=== PATIENT | female | born 1955 | race Caucasian/White ===

== ENCOUNTER → 2016-12-28 | Outpatient (CLI) | payer OTHER ==
[~2016-12-28] MED LIST: CITA10SO PO; LEVO100T4 PO; MEDR4PAK3 PO; ZITH250T PO
--- NOTE | 2016-12-28 10:19 | RADRPT ---
EXAM DATE/TIME: 12/28/2016 10:12 [facility] COMPARISON: CHEST PA & LAT, February 13, 2015, 12:00. INDICATIONS : Short of breath. MEDICAL HISTORY : Smoking. SURGICAL HISTORY : None. ENCOUNTER: Initial ACUITY: 2 weeks PAIN SCORE: 0/10 LOCATION: Bilateral chest FINDINGS: PA and lateral views of the chest demonstrate the lungs to be symmetrically aerated without evidence of mass, infiltrate or effusion. The cardiomediastinal contours are unremarkable. Osseous structure s are intact. CONCLUSION: No acute disease. Abhijit Whyte MD on December 28, 2016 at 10:16 Board Certified Radiologist. This report was verified electronically.
== END ==
LOC: HRAD 09:48
DX: R06.02 Shortness of breath (principal)
CPT/HCPCS: 71020

== ENCOUNTER 2017-03-17 08:59 | Day surgery (SDC) | payer OTHER ==
--- NOTE | 2017-03-17 14:44 | RADRPT ---
EXAM DATE/TIME: 03/17/2017 09:19 [facility] COMPARISON: No previous studies available for comparison. INDICATIONS : Thyroid paplable lump. MEDICAL HISTORY : Thyroid disease. Ectopic x2. Tobacco use. SURGICAL HISTORY : Bilateral salpingectomy. One ovary and half of the other removed. ENCOUNTER: Initial ACUITY: 4 - 6 months PAIN SCORE: 0/10 LOCATION: Bilateral neck MEASUREMENTS: RIGHT LOBE: 3.3 x 1.4 x 1.2 cm LEFT LOBE: 3.2 x 1.3 x 1.2 cm FINDINGS: RIGHT LOBE: Diffusely heterogeneous echotexture with normal vascularity. Predominantly hypoechoic solid nodu le in the lower thyroid lobe measuring 7 x 5 x 4 mm. Predominantly hypoechoic solid nodule in th e mid thyroid lobe measuring 8 x 9 x 4 mm. LEFT LOBE: Diffusely heterogeneous echotexture with normal vascularity. Heterogeneous solid nodule measurin g 12 x 5 x 4 mm. ISTHMUS: Normal in size without focal abnormality. CONCLUSION: Diffusely heterogeneous thyroid echotexture with bilateral noncalcified solid thyroid nodules, as abo ve. These nodules do not meet Society of [employer] in Ultrasound criteria for sampling. Abebe Green MD on March 17, 2017 at 14:33 Board Certified Radiologist. This report was verified electronically.
--- NOTE | 2017-03-17 14:45 | RADRPT ---
EXAM DATE/TIME: 03/17/2017 09:19 [facility] COMPARISON: No previous studies available for comparison. INDICATIONS : Patient feels inner lump when swallowing. MEDICAL HISTORY : Thyroid disease. Ectopic x2. Tobacco use. SURGICAL HISTORY : Bilateral salpingectomy. One ovary and half of the other removed. ENCOUNTER: Initial ACUITY: 4-6 months PAIN SCORE: 0/10 LOCATION: Bilateral neck AREA EVALUATED: Neck FINDINGS: MASSES: None. FLUID COLLECTIONS: None. OTHER: Negative. CONCLUSION: 1. Ultrasound examination of the soft tissues in the patient's region of palpable mass does not demon strate any focal abnormality. Abebe Green MD on March 17, 2017 at 14:42 Board Certified Radiologist. This report was verified electronically.
== END 2017-03-17 10:00 | disposition home or self-care (01) ==
LOC: HRAD 08:59 → HRIP 09:03 → EDSTATUS 09:30 → HRAD 10:00
DX: E04.2 Nontoxic multinodular goiter (principal)
CPT/HCPCS: 76536

== ENCOUNTER → 2017-06-10 | Outpatient (CLI) | payer OTHER ==
[~2017-06-10] VITALS: Ht 160 cm; Wt 79.4 kg
[~2017-06-10] MED LIST changes: +CELE20TA PO; +CHLORHEXIDINE GLUCONATE 2 % 1 PACK (2 CLOTHS) TOPICAL PRN; +INSULIN HUMAN REGULAR 1,000 UNITS/10 ML VIAL SQ PRN; +LACTATED RINGER'S 1000 ML INJ 1,000 ML IV ONE; +LACTATED RINGER'S 1000 ML IV PRN; +LEVO100T5 PO; +LIDOCAINE HCL 1% PF 5 ML AMPULE OTHER ONE; +METOPROLOL TARTRATE 25 MG TAB PO PRN; +POVIDONE IODINE 5% (ANTISEPSIS KIT) 4 APPLICATIONS EACH NARE PRN; +PROPOFOL 200 MG/20 ML AMP IV ONE; +SODIUM CHLORID 0.9% 500 ML IV PRN
--- NOTE | 2017-06-10 14:55 | GIPROC ---
[facility] [address] [facility] [facility] [address] [facility]. [facility], [address] EGD PROCEDURE REPORT EXAM DATE: 06/10/2017 PATIENT NAME: Virgie Cuevas MR #: [id number] BIRTHDATE: 1955 ATTENDING: Seth Cowan MD ORDER #: [id number] TILE LAYER: Staci Zhnag and Carin Dominguez STATUS: outpatient INDICATIONS: The patient is a 62 yr old female here for an EGD due to dysphagia PROCEDURE PERFORMED: EGD w/ biopsy EGD w/ dilation of esophagus via guidewire MEDICATIONS: None and Per Anesthesia. TOPICAL ANESTHETIC: none CONSENT: The patient understands the risks and benefits of the procedure and understands that these risks include, but are not limited to: sedation, allergic reaction, infection, perforation and/or bleeding. Alternative means of evaluation and treatment include, among others: physical exam, x-rays, and/or surgical intervention. The patient elects to proceed with this endoscopic procedure. medical equipment was checked for proper function. Hand hygiene and appropriate measures for infection prevention was taken. After the risks, benefits and alternatives of the procedure were thoroughly explained, Informed consent was verified, confirmed and timeout was successfully executed by the treatment team. The patient was anesthetized with topical anesthesia and the Pentax [id number] endoscope was introduced through the mouth and advanced to the third portion of the duodenum. Retroflexion was performed and was normal The gastroscope was then slowly withdrawn and removed. ESOPHAGUS: The mucosa of the esophagus appeared normal. Multiple biopsies were performed. The GE Junction was located 42cm from the incisors. The GEJ appeared irregular and biopsies were taken. Cervical resistence. The stricture was dilated using a 16mm (48Fr) savary dilator over guidewire. Following this dilation, there was no change in the appearance of the stricture. Biopsies were taken in the proximal, mid, and distal esophagus for eosinophilic esophagitis. STOMACH: The mucosa of the stomach appeared normal. DUODENUM: The duodenal mucosa appeared normal. ADVERSE EVENTS: There were no complications. IMPRESSIONS: 1. The esophagus appeared normal; multiple biopsies were performed 2. The GE Junction was located 42cm from the incisors 3. Cervical resistence 4. The mucosa of the stomach appeared normal 5. Normal duodenal mucosa 6. Retroflexion was performed and was normal RECOMMENDATIONS: 1. Await biopsy results. Biopsy results will not be ready for 7-10 days. If you don't hear from us in two weeks, call our office for biopsy results. 2. Colonoscopy today PATIENT CONDITION: stable DISPOSITION: Home REPEAT EXAM: Seth Cowan MD eSigned: Seth Cowan MD 06/10/2017 2:55 PM cc: PATIENT NAME: Virgie Cuevas MR#: [id number]
--- NOTE | 2017-06-10 15:09 | GIPROC ---
[facility] [address] [facility]. [facility], [address] COLONOSCOPY PROCEDURE REPORT EXAM DATE: 06/10/2017 PATIENT NAME: Virgie Cuevas MR #: [id number] BIRTHDATE: 1955 ENDOSCOPIST: Seth Cowan MD ORDER #: [id number] FRIT COATER: Staci Zhang and Carin Dominguez STATUS: outpatient INDICATIONS: The patient is a 62 yr old female here for a colonoscopy due to patient's immediate family history of colon cancer and patient's family history of colon polyps Colonoscopy, incomplete MEDICATIONS: None and Per Anesthesia. PREP QUALITY: poor PREP TYPE:MoviPrep ESTIMATED BLOOD LOSS: None CONSENT: The patient understands the risks and benefits of the procedure and understands that these risks include, but are not limited to: sedation, allergic reaction, infection, perforation and/or bleeding. Alternative means of evaluation and treatment include, among others: physical exam, x-rays, and/or surgical intervention. The patient elects to proceed with this endoscopic procedure. medical equipment was checked for proper function. Hand hygiene and appropriate measures for infection prevention was taken. After the risks, benefits and alternatives of the procedure were thoroughly explained, Informed consent was verified, confirmed and timeout was successfully executed by the treatment team. A digital exam revealed no abnormalities of the rectum The Pentax [id number] endoscope was introduced through the anus and advanced to the cecum, which was identified by both the appendix and ileocecal valve. The instrument was then slowly withdrawn as the colon was fully examined. COLON FINDINGS: Four smooth sessile polyps measuring 2 mm in size were found in the sigmoid colon. Multiple biopsies were performed using cold forceps. Five smooth sessile polyps ranging between 3-5mm in size were found in the rectum. A polypectomy was performed with a cold snare. The resection was complete and the polyp tissue was completely retrieved. Mild diverticulosis was noted in the descending colon and sigmoid colon. Small internal hemorrhoids were found. Procedure was terminated in the distal transverse colon because of poor prep and looping. Retroflexed views revealed small internal hemorrhoids The scope was then completely withdrawn from the patient and the procedure terminated. ADVERSE EVENTS: There were no complications. IMPRESSIONS: 1. Four sessile polyps were found in the sigmoid colon; multiple biopsies were performed using cold forceps 2. Five sessile polyps ranging between 3-5mm in size were found in the rectum; polypectomy was performed with a cold snare 3. Mild diverticulosis was noted in the descending colon and sigmoid colon 4. Small internal hemorrhoids 5. Procedure was terminated in the distal transverse colon because of poor prep and looping 6. Retroflexed views revealed small internal hemorrhoids 7. Revealed no abnormalities of the rectum RECOMMENDATIONS: 1. Await biopsy results. Biopsy results will not be ready for 7-10 days. If you don't hear from us in two weeks, call our office for results. 2. Redo colon with a different prep RECALL: Seth Cowan MD eSigned: Seth Cowan MD 06/10/2017 3:08 PM cc: PATIENT NAME: Virgie Cuevas MR#: [id number]
[2017-06-10 15:45] VITALS: BP 142/72; PULSE 62; RESP 16; TEMP 98.7; O2SAT 98
--- NOTE | 2017-06-10 15:45 | EKG ---
Date Performed: 06/10/2017 Time Performed: 12:05:00 PTAGE: 62 years EKG: Sinus rhythm LOW QRS VOLTAGE IN PRECORDIAL LEADS PATTERN CONSISTENT WITH PULMONARY DISEASE ABNORMAL ECG No signif icant change from prior electrocardiogram. PREVIOUS TRACING : 02/27/2010 09.07 DOCTOR: Kendall Morrow Interpretating Date/Time 06/10/2017 15:44:26
== END ==
LOC: HSDC 11:32
PROVIDERS: ATTEND Internal Medicine Gastroenterology
DX: Z12.11 Encounter for screening for malignant neoplasm of colon (principal); Z80.0 Family history of malignant neoplasm of digestive organs; D12.5 Benign neoplasm of sigmoid colon; K62.1 Rectal polyp; K57.90 Diverticulosis of intestine, part unspecified, without perforation or abscess without bleeding; K64.8 Other hemorrhoids; R13.10 Dysphagia, unspecified; K22.2 Esophageal obstruction; R94.31 Abnormal electrocardiogram [ECG] [EKG]
CPT/HCPCS: 00740; 00810; 43239; 43248; 45380; 45385; 88305; 93005; C1769; J3010; J7120